=== PATIENT | female | born 1985 | race African-American/Black ===

== ENCOUNTER → 2017-10-28 | Outpatient (CLI) | payer MEDICAID | END | disposition home or self-care (01) | LOC: CFH 09:48 | PROVIDERS: ATTEND Nurse Practitioner | DX: M25.561 Pain in right knee (principal) ==

== ENCOUNTER 2020-02-21 19:05 | Emergency (ER) | payer MEDICAID ==
[~2020-02-21] VITALS: Ht 167.6 cm; Wt 93.8 kg
[2020-02-21 19:30] VITALS: BP 141/89
[2020-02-21] MEDS ORDERED: ACETAMINOPHEN 500 MG TABLET PO ONE (20:30)
== END 2020-02-21 21:22 | disposition home or self-care (01) ==
LOC: ED 21:15
DX: G89.11 Acute pain due to trauma (principal); M25.572 Pain in left ankle and joints of left foot; Z88.2 Allergy status to sulfonamides; W10.9XXA Fall (on) (from) unspecified stairs and steps, initial encounter; Y93.89 Activity, other specified; Y92.89 Other specified places as the place of occurrence of the external cause; Y99.8 Other external cause status
CPT/HCPCS: 99283

== ENCOUNTER 2020-12-13 09:54 | Emergency (ER) | payer MEDICAID ==
[~2020-12-13] VITALS: Ht 167.6 cm; Wt 86.0 kg
--- NOTE | 2020-12-13 10:31 | NUR ---
PT AMBULATORY TO ROOM 32 W/ C/O CP AND SOB. PT STATES IT STARTED A FEW MONTHS AGO AND GOT INCREASINGLY WORSE YESTERDAY. PT STATES SHE SAW HER PCP AND HAD CXR DONE AND IT CAME BACK NEG BUT WAS TOLD TO COME IN FOR R/O PE. PT STATES HX PE IN 2012 WHEN SHE WENT ON A LONG ROAD TRIP WHILE SHE WAS AND HAD PE. WAS PLACED ON LOVENOX SQ AND THEN COUMADIN AFTER PT BABY WAS BORN. PT STATES "IT FEELS LIKE A KNUCKLE IS PUSHING INTO MY CHEST. THAT'S THE BEST WAY I CAN DESCRIBE IT". PT C/O L SIDE CP. PT RESTING ON GURNEY. NADN. MONITORS APPLIED. VSS. WARM BLANKET PROVIDED. CALL LIGHT IN REACH. LARGE BORE PIV INITIATED.
[2020-12-13] MEDS ORDERED: SODIUM CHLORIDE FLUSH 10ML SYR IVF ONE (11:00)
[2020-12-13] MEDS ORDERED: KETOROLAC 30 MG/1 ML IVPush ONE (11:00)
--- NOTE | 2020-12-13 11:02 | NUR ---
PT RESTING ON GURNEY. NADN. REINA.
[2020-12-13] MEDS ORDERED: KETOROLAC 30 MG/1 ML ONE (11:06)
[2020-12-13 11:11] LABS: MEAN CORPUSCULAR HEMOGLOBIN 31.1 pg (27.0-34.8); MEAN CORPUSCULAR HGB CONC 34.1 g/dL (32.4-35.8); MEAN PLATELET VOLUME 8.9 fL (7.4-10.4); PLATELET COUNT 331 x10^3/uL (130-400); RED BLOOD COUNT 4.44 x10^6/uL (3.82-5.3); RED CELL DISTRIBUTION WIDTH 12.8 % (9.6-15.2)
[2020-12-13 11:21] LABS: ALBUMIN 3.6 g/dL (3.4-5.0); ANION GAP 7 mmol/L (5-15); CALCIUM 8.8 mg/dL (8.5-10.1); CHLORIDE 110 mmol/L (98-107); CREATININE 1.09 mg/dL (0.55-1.02)
[2020-12-13 11:25] LABS: TROPONIN I < 0.015 ng/mL (0.000-0.045)
[2020-12-13 11:28] LABS: <PLATELET ESTIMATE> ADEQUATE; <PLT MORPHOLOGY> NORMAL PLT MORPH; <RBC MORPHOLOGY> NORMAL; LYMPH#(MANUAL) 2.81 x10^3/uL (1-3.4); LYMPHS% (MANUAL) 52 % (22-44); MONOS#(MANUAL) 0.16 x10^3/uL (0.3-2.7); MONOS% (MANUAL) 3 % (2-9); REACTIVE LYMPHS # (MANUAL) 0.32 x10^3/uL (0-0); REACTIVE LYMPHS % (MANUAL) 6 % (0-0); SEG#(MANUAL) 2.11 x10^3/uL (1.8-6.8); SEGS% (MANUAL) 39 % (42-75)
[2020-12-13] MEDS ORDERED: OMNIPAQUE 350 MG/ML, 75ML BOTTLE ONE (12:03)
--- NOTE | 2020-12-13 12:16 | NUR ---
PT CHART REVIEWED AND PLACED FOR RECHECK. PT RESTING ON GURNEY. NADN. REINA.
[2020-12-13 12:38] VITALS: BP 108/70
== END 2020-12-13 12:42 | disposition home or self-care (01) ==
LOC: ED 10:34
DX: R07.89 Other chest pain (principal); Z86.711 Personal history of pulmonary embolism
CPT/HCPCS: 36415; 71275; 80048; 82040; 84484; 84703; 85025; 93005; 96374; 99285; J1885; Q9967